=== PATIENT | female | born 1985 | race African-American/Black ===

== ENCOUNTER 2021-08-19 09:19 | Inpatient (IN) | payer OTHER ==
[2021-08-19] VITALS (18 sets, daily range): BP systolic 98–134; BP diastolic 62–97
[~2021-08-19] VITALS: Ht 172.7 cm; Wt 67.1 kg
[2021-08-19] MEDS ORDERED: LIDOCAINE HCL/PF 1% 2ML VIAL ONE (09:34)
[2021-08-19] MEDS ORDERED: WATER IV STA (09:38)
[2021-08-19] MEDS ORDERED: PENTAMIDINE ISETHIONATE IV STA (09:38)
[2021-08-19] MEDS ORDERED: DEXT 5% IV STA (09:38)
[2021-08-19] MEDS ORDERED: PIPERACILLIN/TAZ 3.375G PREMIX 50 ML IV ONE (09:45)
[2021-08-19] MEDS ORDERED: DEXAMETHASONE 10 MG/ML VIAL IV ONE (09:45)
[2021-08-19] MEDS ORDERED: VANCOMYCIN 1G PREMIX 200 ML IV ONE (09:45)
[2021-08-19] MEDS ORDERED: SODIUM CHLORIDE 0.9% 1000ML BAG (SEPSIS BOLUS) IV ONE (09:45)
[2021-08-19 09:59] LABS: BG BASE EXCESS 1.9 mmol/L (-2.0-2.0); BG CARBOXYHEMOGLOBIN 0.3 % (0.5-1.5); BG DEOXYHEMOGLOBIN 1.3 % (0.0-5.0); BG HCO3 ACT 23.8 mmol/L (22.0-26.0); BG METHEMOGLOBIN 0.1 % (0.0-1.5); BG OXYGEN SATURATION 98.7 % (92.0-98.5); BG OXYHEMOGLOBIN 98.3 % (94.0-97.0); BG PCO2 29.1 mmHg (35.0-45.0); BG PH 7.531 (7.350-7.450); BG PO2 150.3 mmHg (75.0-100.0); BG SAMPLE SITE RIGHT RADIAL; BG TOTAL HEMOGLOBIN 12.1 g/dL (12.0-18.0); BG VENT MODE MASK - NRB
[2021-08-19 10:48] LABS: HEMATOCRIT. 34.7 % (36.0-48.0); HEMOGLOBIN. 11.5 g/dL (12.0-16.0); MEAN CORPUSCULAR HEMOGLOBIN 29.3 pg (28.0-32.0); MEAN CORPUSCULAR VOLUME 88.6 fL (81.0-99.0); MEAN PLATELET VOLUME 8.7 fl (7.4-10.4); PLATELET 237 x1000/uL (130-400); RED BLOOD CELL COUNT 3.92 mill/uL (4.2-5.4); RED CELL DISTRIBUTION WIDTH 12.8 % (11.6-14.6)
[2021-08-19 10:52] LABS: CHLORIDE 99 mEq/L (98-107)
[2021-08-19 11:00] LABS: HCG SCREEN NEGATIVE
[2021-08-19 11:28] LABS: PLATELET ESTIMATE NORMAL
[2021-08-19] MEDS ORDERED: POTASSIUM CHLORIDE 20MEQ TABLET SR PO ONE (11:30)
[2021-08-19 12:24] LABS: CLARITY URINE CLEAR (CLEAR); COLOR URINE YELLOW (YELLOW); KETONES URINE 1+ (NEGATIVE); LEUKOCYTE ESTERASE URINE NEGATIVE (NEGATIVE); NITRITE URINE NEGATIVE (NEGATIVE); OCCULT BLOOD URINE 2+ (NEGATIVE); PROTEIN URINE 3+ (NEGATIVE)
[2021-08-19] MEDS ORDERED: DIPHENHYDRAMINE 50MG/ML VIAL IV PRN (12:30)
[2021-08-19] MEDS ORDERED: ONDANSETRON HCL 4MG/2ML INJ IV PRN (12:30)
[2021-08-19] MEDS ORDERED: MORPHINE SULFATE 2 MG/ML CPJ (NOT FOR IM USE) IV PRN (12:30)
[2021-08-19] MEDS ORDERED: CLONIDINE 0.1MG TABLET PO PRN (12:30)
[2021-08-19] MEDS ORDERED: CEFTRIAXONE 1 G PREMIX 50 ML IV NR (12:30)
[2021-08-19] MEDS ORDERED: ALBUTEROL 6.7GM HFA INHALER ORI PRN (12:45)
[2021-08-19] MEDS ORDERED: AZITHROMYCIN 500MG/250ML 250 ML IV NR (12:45)
[2021-08-19] MEDS ORDERED: NALOXONE HCL 0.4MG/ML VIAL IV PRN (12:45)
[2021-08-19] MEDS: ENOXAPARIN 40MG/0.4ML SYR SUBCUT SCH (14:44)
[2021-08-19] MEDS: ACETAMINOPHEN 325MG TABLET PO PRN (14:56)
[2021-08-19] MEDS: SULFAMETHOXAZOLE/TRIMETHOPRIM 320 MG in DEXT 5% WATER 500 ML IV SCH (15:40)
[2021-08-19 17:31] LABS: BG BASE EXCESS 3.1 mmol/L (-2.0-2.0); BG CARBOXYHEMOGLOBIN 0.3 % (0.5-1.5); BG DEOXYHEMOGLOBIN 0.6 % (0.0-5.0); BG HCO3 ACT 25.7 mmol/L (22.0-26.0); BG METHEMOGLOBIN 0.3 % (0.0-1.5); BG OXYGEN SATURATION 99.4 % (92.0-98.5); BG OXYHEMOGLOBIN 98.8 % (94.0-97.0); BG PCO2 32.7 mmHg (35.0-45.0); BG PH 7.514 (7.350-7.450); BG PO2 361.7 mmHg (75.0-100.0); BG SAMPLE SITE RIGHT RADIAL; BG TOTAL HEMOGLOBIN 11.5 g/dL (12.0-18.0); BG VENT MODE MASK - BIPAP
[2021-08-19] MEDS: BENZONATATE 100MG CAPSULE PO PRN (21:18)
[2021-08-20] VITALS (24 sets, daily range): BP systolic 105–138; BP diastolic 20–88
[2021-08-20] MEDS: SULFAMETHOXAZOLE/TRIMETHOPRIM 320 MG in DEXT 5% WATER 500 ML IV SCH (00:56)
[2021-08-20 05:42] LABS: BASOPHILS % 0.2 % (0.0-2.0); EOSINOPHILS % 0.5 % (0.0-5.0); HEMATOCRIT. 32.6 % (36.0-48.0); HEMOGLOBIN. 10.8 g/dL (12.0-16.0); LYMPHOCYTES % 8.3 % (20.0-50.0); MEAN CORPUSCULAR HEMOGLOBIN 29.2 pg (28.0-32.0); MEAN CORPUSCULAR VOLUME 88.2 fL (81.0-99.0); MEAN PLATELET VOLUME 9.1 fl (7.4-10.4); MONOCYTES % 3.7 % (2.0-8.0); NEUTROPHILS % 87.3 % (40.0-76.0); PLATELET 213 x1000/uL (130-400); RED CELL DISTRIBUTION WIDTH 12.5 % (11.6-14.6)
[2021-08-20 05:51] LABS: CHLORIDE 100 mEq/L (98-107)
[2021-08-20] MEDS ORDERED: AZITHROMYCIN 500 MG in DEXT 5% WATER 250 ML IV SCH ×2 (08:00→09:00)
[2021-08-20] MEDS: BENZONATATE 100MG CAPSULE PO PRN (08:37)
[2021-08-20] MEDS: DEXAMETHASONE 10 MG/ML VIAL IV SCH (08:37)
[2021-08-20] MEDS: CEFTRIAXONE 1,000 MG in DEXTROSE 5% WATER 50 ML IV SCH (08:57)
[2021-08-20] MEDS ORDERED: POTASSIUM CHLORIDE 20MEQ TABLET SR PO NR (09:00)
[2021-08-20] MEDS: AZITHROMYCIN 500 MG in DEXT 5% WATER 250 ML IV SCH (10:58)
[2021-08-20] MEDS: ENOXAPARIN 40MG/0.4ML SYR SUBCUT SCH (13:38)
[2021-08-20] MEDS: SULFAMETHOXAZOLE/TRIMETHOPRIM 800/160MG TABLET PO SCH ×2 (13:38→21:37)
[2021-08-21] VITALS (21 sets, daily range): BP systolic 100–158; BP diastolic 64–90
[2021-08-21] MEDS: ACETAMINOPHEN 325MG TABLET PO PRN ×2 (00:01→09:15)
[2021-08-21 05:06] LABS: BASOPHILS % 0.1 % (0.0-2.0); EOSINOPHILS % 3.1 % (0.0-5.0); HEMOGLOBIN. 9.7 g/dL (12.0-16.0); LYMPHOCYTES % 7.4 % (20.0-50.0); MEAN CORPUSCULAR HEMOGLOBIN 29.6 pg (28.0-32.0); MEAN CORPUSCULAR VOLUME 88.8 fL (81.0-99.0); MEAN PLATELET VOLUME 9.1 fl (7.4-10.4); MONOCYTES % 2.3 % (2.0-8.0); NEUTROPHILS % 87.1 % (40.0-76.0); PLATELET 230 x1000/uL (130-400); RED BLOOD CELL COUNT 3.27 mill/uL (4.2-5.4); RED CELL DISTRIBUTION WIDTH 12.5 % (11.6-14.6)
[2021-08-21 05:15] LABS: CHLORIDE 99 mEq/L (98-107)
[2021-08-21] MEDS: SULFAMETHOXAZOLE/TRIMETHOPRIM 800/160MG TABLET PO SCH ×3 (05:38→20:49)
[2021-08-21] MEDS: DEXAMETHASONE 10 MG/ML VIAL IV SCH (08:48)
[2021-08-21] MEDS: CEFTRIAXONE 1,000 MG in DEXTROSE 5% WATER 50 ML IV SCH (08:49)
[2021-08-21] MEDS: BENZONATATE 100MG CAPSULE PO PRN (08:49)
[2021-08-21] MEDS ORDERED: POTASSIUM CHLORIDE 20MEQ/PACKET PO NR (10:45)
[2021-08-21] MEDS: AZITHROMYCIN 500 MG in DEXT 5% WATER 250 ML IV SCH (10:52)
[2021-08-21 12:40] LABS: BG BASE EXCESS -0.3 mmol/L (-2.0-2.0); BG CARBOXYHEMOGLOBIN 0.3 % (0.5-1.5); BG DEOXYHEMOGLOBIN 2.7 % (0.0-5.0); BG FRACTION INSPIRED OXYGEN 44; BG HCO3 ACT 22.4 mmol/L (22.0-26.0); BG METHEMOGLOBIN 0.3 % (0.0-1.5); BG OXYGEN SATURATION 97.3 % (92.0-98.5); BG OXYHEMOGLOBIN 96.7 % (94.0-97.0); BG PCO2 30.4 mmHg (35.0-45.0); BG PH 7.486 (7.350-7.450); BG PO2 92.6 mmHg (75.0-100.0); BG SAMPLE SITE RIGHT RADIAL; BG TOTAL HEMOGLOBIN 10.8 g/dL (12.0-18.0); BG VENT MODE NASAL CANNULA
[2021-08-21] MEDS: ENOXAPARIN 40MG/0.4ML SYR SUBCUT SCH (13:18)
[2021-08-22] VITALS: BP 148/93
[2021-08-22 04:00] VITALS: BP 116/54
[2021-08-22] MEDS: SULFAMETHOXAZOLE/TRIMETHOPRIM 800/160MG TABLET PO SCH (05:29)
[2021-08-22 08:00] VITALS: BP 125/80
[2021-08-22] MEDS: CEFTRIAXONE 1,000 MG in DEXTROSE 5% WATER 50 ML IV SCH (09:40)
[2021-08-22] MEDS: DEXAMETHASONE 10 MG/ML VIAL IV SCH (09:40)
[2021-08-22] MEDS: AZITHROMYCIN 500 MG in DEXT 5% WATER 250 ML IV SCH (11:00)
[2021-08-22 11:05] LABS: BG BASE EXCESS 2.1 mmol/L (-2.0-2.0); BG CARBOXYHEMOGLOBIN 0.3 % (0.5-1.5); BG DEOXYHEMOGLOBIN 20.3 % (0.0-5.0); BG FRACTION INSPIRED OXYGEN 21; BG HCO3 ACT 24.2 mmol/L (22.0-26.0); BG METHEMOGLOBIN 0.3 % (0.0-1.5); BG OXYGEN SATURATION 79.6 % (92.0-98.5); BG OXYHEMOGLOBIN 79.1 % (94.0-97.0); BG PCO2 29.7 mmHg (35.0-45.0); BG PH 7.529 (7.350-7.450); BG PO2 42.1 mmHg (75.0-100.0); BG SAMPLE SITE RIGHT RADIAL; BG TOTAL HEMOGLOBIN 11.5 g/dL (12.0-18.0); BG VENT MODE ROOM AIR
[2021-08-22 11:33] VITALS: BP 125/80
[2021-08-22 11:48] VITALS: BP 127/76
[2021-08-22] MEDS: ENOXAPARIN 40MG/0.4ML SYR SUBCUT SCH (13:02)
[2021-08-22 13:11] LABS: % CD 3 POS. LYMPHOCYTES 38.4 % (57.5-86.2); % CD 4 POS. LYMPHOCYTES 1.3 % (30.8-58.5); CD4/CD8 RATIO 0.04 (0.92-3.72)
[2021-08-23] MEDS ORDERED: ASPIRIN 81MG EC TABLET PO SCH (09:00)
[2021-08-29 14:28] LABS: *HIV-1 RNA BY PCR 482320
== END 2021-08-22 13:40 | disposition short-term general hospital (02) | DRG 974 ==
LOC: ER 09:19 → MICUSO 11:41 → ENRESERV 13:56 → 7EST 08-21 18:45
PROVIDERS: ADMIT Internal Medicine; ATTEND Internal Medicine
PROC: 5A09357 Assistance with Respiratory Ventilation, Less than 24 Consecutive Hours, Continuous Positive Airway Pressure (ICD-10-PCS; principal; 2021-08-19)
PROC: 5A09357 Assistance with Respiratory Ventilation, Less than 24 Consecutive Hours, Continuous Positive Airway Pressure (ICD-10-PCS; 2021-08-20)
DX: A41.89 Other specified sepsis (principal); E43 Unspecified severe protein-calorie malnutrition; B20 Human immunodeficiency virus [HIV] disease; U07.1 COVID-19; J12.82 Pneumonia due to coronavirus disease 2019; J96.01 Acute respiratory failure with hypoxia; D63.8 Anemia in other chronic diseases classified elsewhere; E87.6 Hypokalemia; I10 Essential (primary) hypertension; J20.8 Acute bronchitis due to other specified organisms; B37.9 Candidiasis, unspecified; R77.8 Other specified abnormalities of plasma proteins; R80.9 Proteinuria, unspecified; Z87.891 Personal history of nicotine dependence; Z68.22 Body mass index [BMI] 22.0-22.9, adult
CPT/HCPCS: 36415; 36600; 71045; 80048; 80053; 81003; 82375; 82805; 83605; 83615; 83880; 84145; 84484; 84703; 85025; 86140; 86359; 86360; 87426; 87536; 93005; 93970; 94660; 99291; C9803; J0456; J0696; J1100; J1650; J2543; J3370; J3490; J7030; J7060